=== PATIENT | male | born 1995 | race Caucasian/White ===

== ENCOUNTER → 2019-06-17 | Outpatient (CLI) | payer BC | LOC: COL.RAD 07:30 | DX: S43.491D Other sprain of right shoulder joint, subsequent encounter (principal) | CPT/HCPCS: A9585; Q9967 ==

== ENCOUNTER 2021-06-07 16:39 | Emergency (ER) | payer OTHER ==
[~2021-06-07] VITALS: Ht 182.9 cm; Wt 81.8 kg
[2021-06-07 17:45] VITALS: TEMP 98.3
[2021-06-07 18:35] VITALS: BP 114/70; PULSE 61
== END 2021-06-07 18:35 | disposition home or self-care (01) ==
LOC: COL.ER 16:39
DX: H02.89 Other specified disorders of eyelid (principal)

== ENCOUNTER 2023-07-19 05:56 | Day surgery (SDC) | payer OTHER ==
[~2023-07-19] VITALS: Ht 180.3 cm; Wt 84.1 kg
[2023-07-19] VITALS (7 sets, daily range): BP systolic 98–121; BP diastolic 48–72; PULSE 58–70; TEMP 97.7–98.1
[2023-07-19] MEDS ORDERED: NORCO 325 MG-51 TAB PO (08:53)
--- NOTE | 2023-07-19 11:05 | NUR ---
0940-PT TO [place] 8 PER CART FROM PACU. REPORT RECEIVED. VS OBTAINED. CALL LIGHT WITHIN REACH. BED IN LOW POSITION AND SIDE RAILS UP X2. PT DENIES ANY NEEDS AT THIS TIME. 1010-PT TOLERATING MUFFIN AND JUICE WITHOUT DIFFICULTY. 1015-PT C/O PAIN AT THIS TIME. RATES PAIN 6/10. ICE PACK GIVEN. [place] 1 TAB GIVEN AT THIS TIME. 1040-PT RATES PAIN 4-5/10. STATES IS TOLERABLE. 1050-IV DC'D AT THIS TIME. DISCHARGE EDUCATION COMPLETED WITH PT AND HIS . VERBALIZED UNDERSTANDING OF HOME AND FOLLOW UP CARE. ALL QUESTIONS ANSWERED. DISCHARGE PAPERWORK GIVEN TO PT. 1055-PT DRESSED SELF WITHOUT ASSISTANCE. 1105-PT OFF UNIT PER WHEELCHAIR. PT DISCHARGED TO HOME WITH PER PERSONAL VEHICLE.
== END 2023-07-19 11:05 | disposition home or self-care (01) ==
LOC: SDCO 05:56
DX: K40.90 Unilateral inguinal hernia, without obstruction or gangrene, not specified as recurrent (principal); D17.6 Benign lipomatous neoplasm of spermatic cord
CPT/HCPCS: C1781; J0690; J1100; J1885; J2175; J2270; J2405; J2704; J3010; J7120